=== PATIENT | female | born 1985 | race Caucasian/White ===

== ENCOUNTER 2021-09-01 20:03 | Emergency (ER) | payer BC, OTHER, SELFPAY ==
[2021-09-01] MEDS ORDERED: Cephalexin 250 MG CAP ONE (21:11)
[2021-09-01] MEDS ORDERED: Sulfameth/Trimethoprim DS 800-160mg TAB ONE (21:11)
== END 2021-09-01 21:19 | disposition home or self-care (01) ==
LOC: BURERS 20:03
DX: L03.114 Cellulitis of left upper limb (principal)
CPT/HCPCS: 99282